=== PATIENT | male | born 1960 | race Caucasian/White ===

== ENCOUNTER 2022-08-04 00:28 | Day surgery (SDC) | payer OTHER, SELFPAY ==
[2022-07-26 12:14] VITALS: BMI 30.1
[2022-08-04 06:15] VITALS: BP 135/77; PULSE 66; RESP 20; TEMP 36.2; O2SAT 99
[2022-08-04] MEDS: LACTATED RINGERS 1,000 ML 150 ML IV CONT (06:27)
--- NOTE | 2022-08-04 06:51 | P.PNAN_ITS ---
Anes - Initial Pre Proc Eval Procedure: Operation Date: 08/04/22 07:30 Proposed Procedures p Screening Colonoscopy - Elmer Shaffer MD Date/Time: 08/04/22 06:51 Surgeon: Elmer Shaffer MD Pre Op Diagnosis: neoplasm screening Patient Data Age: 62 Gender: M Height: 1.78 m Weight: 100.2 kg Last Vital Signs Temp 36.2 C L 08/04/22 06:15 Pulse 66 08/04/22 06:15 Resp 20 08/04/22 06:15 BP 135/77 08/04/22 06:15 Pulse Ox 99 08/04/22 06:15 O2 Del Method Room Air 08/04/22 06:15 Allergies Allergy/AdvReac Type Severity Reaction Status Date / Time No Known Allergies Allergy Verified 08/04/22 06:13 Home Medications Medication Instructions Recorded Confirmed Type meloxicam 7.5 mg tablet 7.5 mg PO DAILY PRN Pain, Moderate 07/26/22 07/26/22 History Patient hx anesthesia problems: none Family hx anesthesia problems: none Results Review: All pre-operative results and documents have been reviewed as part of the pre- operative evaluation. [facility] Past Medical History Medical History (Updated 08/04/22 @ 06:51 by Fernandez Cronin MD) Obesity Surgical History Surgical History (Updated 08/04/22 @ 06:52 by Fernandez Cronin MD) H/O arthroscopic knee surgery History of carpal tunnel surgery Social History Social History Smoking status: Never smoker Alcohol intake: never Substance use type: does not use Living arrangements: with family Spiritual care concerns: No Anes - Eval Final PreProcedure Day of Procedure 08/04/22 06:51 Patient weight: obese Heart: regular rate and rhythm Lungs: clear to auscultation Airway: Mallampati scale class II Neurological: alert and oriented Last oral intake: >/= 8 hours ASA classification: II Emergent: no Anesthetic plan: proceed Anesthesia type and monitoring: general GIVS and standard monitoring Results Review: All pre-operative results and documents have been reviewed as part of the pre- operative evaluation. Informed Consent: The patient's anesthetic plan and its attendant risks and benefits were discussed with the patient/family/POA. Questions were solicited and answers provided to the satisfaction of the patient/family/POA.
--- NOTE | 2022-08-04 07:43 | P.HP_ITS ---
History of Present Illness History of Present Illness Consent: Risks, benefits, and alternatives have been discussed and questions answered. Patient agrees to proceed with procedure. Chief complaint: neoplasm screening Narrative: Juarez Giang is a 62 year old male Presents for screening colonoscopy. Patient's current weight appetite and bowel movements are normal. Patient denies abdominal pain. He has had no bleeding. Family history noncontributory. Review of Systems Review of Systems: Review of systems noncontributory. [facility] Past Medical History Medical History (Updated 08/04/22 @ 07:44 by Elmer Shaffer MD) Obesity Surgical History Surgical History (Updated 08/04/22 @ 06:52 by Fernandez Cronin MD) H/O arthroscopic knee surgery History of carpal tunnel surgery Social History Social History Smoking status: Never smoker Alcohol intake: never Substance use type: does not use Living arrangements: with family Spiritual care concerns: No Meds Home Medications and Allergies Home Medications Medication Instructions Recorded Confirmed Type meloxicam 7.5 mg tablet 7.5 mg PO DAILY PRN Pain, Moderate 07/26/22 07/26/22 History Allergies Allergy/AdvReac Type Severity Reaction Status Date / Time No Known Allergies Allergy Verified 08/04/22 06:13 Vital Signs Vital Signs - 24 hr 08/04/22 06:15 Temperature 97.1 F L Pulse Rate 66 Respiratory Rate 20 Blood Pressure 135/77 Pulse Oximetry 99 Oxygen Delivery Room Air Exam Narrative: Physical exam reveals patient to be alert. Vital signs stable. HEENT exam is unremarkable. Patient is anicteric. Lungs are clear to auscultation and percussion. Heart is without murmur or extra sounds. Abdomen bowel sounds present soft nontender with no organomegaly. Digital external rectal exam is normal. Assessment and Plan Assessment and plan (1) Encounter for screening colonoscopy: Code(s): Z12.11 - Encounter for screening for malignant neoplasm of colon Status: Acute Assessment and Plan: Patient presents for screening colonoscopy. He appears to be at average risk for colon polyps. Further recommendations will be given after endoscopy.
[2022-08-04 07:46] VITALS: BP 124/74; PULSE 64; RESP 22; O2SAT 98
[2022-08-04 07:54] VITALS: BP 126/72; PULSE 64; RESP 17; O2SAT 100
[2022-08-04 08:02] VITALS: BP 140/78; PULSE 60; RESP 20; O2SAT 100
== END 2022-08-04 08:20 | disposition home or self-care (01) ==
PROVIDERS: PCP Family Medicine; Visit Provider Internal Medicine Gastroenterology
PROC: 0DJD8ZZ Inspection of Lower Intestinal Tract, Via Natural or Artificial Opening Endoscopic (ICD-10-PCS; CPT 45378; principal; 2022-08-04 07:30)
DX: Z12.11 Encounter for screening for malignant neoplasm of colon (principal); K64.8 Other hemorrhoids; E66.9 Obesity, unspecified; Z68.31 Body mass index [BMI] 31.0-31.9, adult
CPT/HCPCS: 45378; J2704; J7120

== ENCOUNTER 2023-02-24 07:58 | Outpatient (CLI) | payer BC, SELFPAY ==
--- NOTE | 2023-02-24 08:15 | ECG_ITS ---
Measurements Intervals [place] Rate: 57 P: 34 SD: 228 QRS: -3 QRSD: 107 T: 28 QT: 397 QTc: 390 Interpretive Statements SINUS BRADYCARDIA WITH FIRST DEGREE AV BLOCK OTHERWISE UNREMARKABLE ECG NO PREVIOUS ECG AVAILABLE FOR COMPARISON Electronically Signed On 02-25-2023 8:16:59 CDT by Onesimo Meza M.D.
== END 2023-02-24 07:59 | disposition home or self-care (01) ==
PROVIDERS: PCP Nurse Practitioner Family; Visit Provider Nurse Practitioner Family
DX: Z01.818 Encounter for other preprocedural examination (principal); I44.0 Atrioventricular block, first degree
CPT/HCPCS: 93005

== ENCOUNTER 2023-09-05 08:06 | Emergency (ER) | payer BC, SELFPAY ==
--- NOTE | 2023-09-05 08:12 | ED.URI ---
HPI - URI/Sore Throat General Stated Complaint: TIRED/BODY ACHES/SORE THROAT Source: patient and RN notes reviewed Mode of arrival: ambulatory Limitations: no limitations History of Present Illness HPI Narrative: 63-year-old male presented to get tested for COVID. He endorses symptoms of headache, body aches, sinus pressure/congestion, cough, fever/chills. Onset last night. His tested positive for COVID 2 days ago. Not taking anything for symptoms. Additionally, he reports ankle swelling, warmth and redness. Onset yesterday. Denies ankle or calf pain. Denies numbness, tingling or weakness. States he had back surgery 05/2023, and has been more sedentary. However he walks daily, walked 3 miles yesterday. States it was more swollen yesterday. Has been elevating. Denies sob, wheezing, palpitations, cp, n/v/d. MD elicited complaint: cough Related Data Home Medications Medication Instructions Recorded Confirmed No Home Medications 09/05/23 09/05/23 Allergies Allergy/AdvReac Type Severity Reaction Status Date / Time codeine Allergy NAUSEA Verified 09/05/23 08:26 Review of Systems Review of Systems: CONSTITUTIONAL: Endorses malaise, chills, sweats, fever EYES: Denies visual changes, redness, or discharge ENT: Reports rhinorrhea, congestion, sore throat CARDIOVASCULAR: Denies chest pain, palpitations RESPIRATORY: Reports cough, post nasal drainage. Denies dyspnea GASTROINTESTINAL: Denies abdominal pain, nausea, vomiting, diarrhea MUSC: Reports left ankle swelling SKIN: Denies rash or wounds MUSCULOSKELETAL: Endorses myalgia NEUROLOGIC: Endorses headache PMFSH Past Medical History Medical History BMI 33.0-33.9,adult Chronic low back pain Chronic neck pain Dermatitis Encounter for prostate cancer screening PSA normal at 2.83 on 12/01/2021. Encounter for screening colonoscopy Normal colonoscopy 08/04/2022 with recheck in 10 years. Encounter for wellness examination in adult Neoplasm of scalp (~11/27/22) 0.3 cm pink papule left parietal scalp 11/27/2022 shave biopsy. Obesity Obesity (BMI 30.0-34.9) Osteoarthritis involving multiple joints on both sides of body Otitis media in diseases classified elsewhere, left ear Preop testing Surgical History Surgical History H/O arthroscopic knee surgery History of carpal tunnel surgery Social History Social History Smoking status: Never smoker Alcohol intake: never Substance use: never Substance use type: does not use Current Housing: Decline to Answer Concerned About Future Housing: Decline to Answer Difficulty Paying Gas/Electric Bills: Decline to Answer Difficulty Paying for Meds: Decline to Answer Currently Unemployed: Decline to Answer Education: Decline to Answer Difficulty w/ Childcare or Family Care: Decline to Answer Living arrangements: with family Spiritual care concerns: No Exam Narrative: GENERAL: well-appearing EYES: conjunctivae clear ENT: Mucous membranes moist. Nasal congestion. NECK: Supple. No lymphadenopathy CHEST: Clear to auscultation, breath sounds equal. No wheezing, rhonchi, rales, or stridor. No respiratory distress, speaks in full sentences. HEART: Regular rate and rhythm. No murmur heard. MUSC: Left ankle to mid foot swelling 2+. Right DP pulse +2, Left DP pulse +1. Full ROM to bilateral ankles. Nontender with palpation of ankle. Sensation and strength normal. Gait steady. SKIN: Warm, dry NEURO: Alert and oriented x3. PSYCH: Normal mood and affect Course Course Emergency Course: Patient is aware of diagnosis, understands and agrees to treatment plan. Anticipatory guidance given. Patient agrees to follow-up as directed and is aware of reasons to seek care at the emergency department. Portions of this record may have been created w
[2023-09-05 08:15] VITALS: BP 158/94; PULSE 80; RESP 16; TEMP 36.7; O2SAT 99
== END 2023-09-05 08:45 | disposition short-term general hospital (02) ==
PROVIDERS: Emergency Provider Nurse Practitioner Family; PCP Family Medicine
DX: B34.9 Viral infection, unspecified (principal); M25.472 Effusion, left ankle; Z20.822 Contact with and (suspected) exposure to COVID-19; E66.9 Obesity, unspecified; Z68.31 Body mass index [BMI] 31.0-31.9, adult; M15.9 Polyosteoarthritis, unspecified; Z85.828 Personal history of other malignant neoplasm of skin
CPT/HCPCS: 87426; 99213; C9803; G0463

== ENCOUNTER 2023-09-05 09:01 | Emergency (ER) | payer BC, SELFPAY ==
--- NOTE | ~2023-09-05 | XR_ITS ---
XR ankle LT min 3V DATE: 09/05/2023 09:54 INDICATION: Left ankle swelling. No injury. TECHNIQUE: 4 mm COMPARISON: None FINDINGS: No fracture or dislocation of the ankle or disruption of the ankle mortise. No periosteal r eaction or bone destruction is noted. Moderate plantar and posterior calcaneal enthesopathy. IMPRESSION: Plantar and posterior calcaneal enthesopathy Reviewed, dictated and finalized at location B. E ADJUSTMENT SUPERVISOR
--- NOTE | ~2023-09-05 | US_ITS ---
EXAMINATION: US venous doppler [facility] DATE: 09/05/2023 10:15 INDICATION: Left lower limb swelling and warmth TECHNIQUE: Grayscale ultrasound images without and with compression and Doppler ultrasound images of the left lower extremity veins were obtained. COMPARISON: None. FINDINGS: The visualized portions of left common femoral vein, profunda (deep) femoral vein, femoral vein, popl iteal vein, peroneal veins, posterior tibial veins, gastrocnemius vein and greater saphenous vein out flow are patent. IMPRESSION: 1. No deep venous thrombosis in the left lower limb. Reviewed, dictated and finalized at location A. TITY SURVEYOR
[2023-09-05 09:19] VITALS: BP 161/81; PULSE 73; RESP 20; TEMP 36.5; O2SAT 98
--- NOTE | 2023-09-05 09:36 | ED.GENADULT ---
HPI - General Adult General Chief complaint: Extremity Problem,Nontraumatic Stated complaint: left lower leg swelling Time Seen by Provider: 09/05/23 09:27 Source: patient Mode of arrival: ambulatory Limitations: no limitations History of Present Illness HPI narrative: This is a 63-year-old male who presents to the ED with chief complaint of left ankle swelling. He was referred to the ER from Urgent Care today to rule out DVT. Reports the ankle swelling began yesterday and is limited to just the ankle area. Denies any pain in the calf or thigh. Denies swelling in these areas as well. Denies history of blood clot. He is not currently on any blood thinners. He had spine surgery in May of 2023 and has been walking very regularly ever since. Reports he walked 3 miles yesterday. States the ankle does not have any pain. No problems with weight-bearing or ambulation. additional complaints viral URI symptoms, tested positive for COVID a couple days ago. He started feeling sick yesterday with cough congestion, sore throat. He had some chills but denies any documented fevers. Related Data Home Medications Medication Instructions Recorded Confirmed No Home Medications 09/05/23 09/05/23 Allergies Allergy/AdvReac Type Severity Reaction Status Date / Time codeine Allergy NAUSEA Verified 09/05/23 09:30 Review of Systems Review of Systems: All systems as dictated in [facility] Past Medical History Medical History BMI 33.0-33.9,adult Chronic low back pain Chronic neck pain Dermatitis Encounter for prostate cancer screening PSA normal at 2.83 on 12/01/2021. Encounter for screening colonoscopy Normal colonoscopy 08/04/2022 with recheck in 10 years. Encounter for wellness examination in adult Neoplasm of scalp (~11/27/22) 0.3 cm pink papule left parietal scalp 11/27/2022 shave biopsy. Obesity Obesity (BMI 30.0-34.9) Osteoarthritis involving multiple joints on both sides of body Otitis media in diseases classified elsewhere, left ear Preop testing Surgical History Surgical History H/O arthroscopic knee surgery History of carpal tunnel surgery Social History Social History Smoking status: Never smoker Alcohol intake: never Substance use: never Substance use type: does not use Current Housing: Decline to Answer Concerned About Future Housing: Decline to Answer Difficulty Paying Gas/Electric Bills: Decline to Answer Difficulty Paying for Meds: Decline to Answer Currently Unemployed: Decline to Answer Education: Decline to Answer Difficulty w/ Childcare or Family Care: Decline to Answer Living arrangements: with family Spiritual care concerns: No Exam Narrative: GENERAL: Well-appearing, well-nourished, and in no acute distress. HEAD: Normocephalic, atraumatic. EYES: PERRLA and EOMI. ENT: Nares clear, no rhinorrhea or epistaxis. Mucous membranes moist. Oropharynx without tonsillar hypertrophy exudate or other lesions. NECK: Supple. No adenopathy or masses. CHEST: No respiratory distress. Clear to auscultation. No wheezes rales or rhonchi HEART: Regular rate and rhythm. No murmur heard. Normal peripheral pulses. ABDOMEN: Soft, nontender, nondistended, normal active bowel sounds. MSK: LLE: mild swelling to the left ankle joint. No calf swelling. no tenderness throughout the LLE. Ambulatory without difficulty. Range of motion of the left ankle. RLE: Benign SKIN: Left ankle warmth present. No erythema or other discoloration. No lesions or bruising. No crepitus. NEURO: Alert and oriented x3. No focal deficits. PSYCH: Normal mood and affect. Course Vital Signs Vital signs: Vital Signs Temperature 97.7 F 09/05/23 09:19 Pulse Rate 73 09/05/23 09:19 Respiratory Rate 20 0
[2023-09-05 10:14] LABS: Basophils Percent Auto 0.5 % (0.2-1.2); Eosinophils Absolute Auto 0.1 K/mm3 (0-0.3); Eosinophils Percent Auto 0.7 % (0-4.4); Hematocrit 49.8 % (42.0-52.0); Hemoglobin 16.1 g/dL (14.0-18.0); Immature Granulocyte Absolute 0.05 K/mm3 (0.00-0.031); Immature Granulocyte Percent A 0.6 % (0-0.5); Lymphocytes Absolute Auto 0.82 K/mm3 (0.9-3.2); Lymphocytes Percent Auto 10.2 % (18.3-44.2); Mean Corpuscular HGB Conc 32.3 g/dl (32-36); Mean Corpuscular Hemoglobin 28.7 pg (26-34); Mean Corpuscular Volume 88.8 fl (80-100); Mean Platelet Volume 10.7 fl (7.4-10.4); Monocytes Absolute Auto 1.1 K/mm3 (0.1-0.6); Monocytes Percent Auto 14.2 % (2.6-8.5); Neutrophils Absolute Auto 5.9 K/mm3 (1.3-6.7); Neutrophils Percent Auto 73.8 % (45.5-73.1); Platelet Count Result 221 k/mm3 (150-375); Red Blood Count 5.61 M/mm3 (4.6-6.20); Red Cell Distribution Width 13.5 % (11.5-14.5)
[2023-09-05 10:26] LABS: Alanine Aminotransferase 52 U/L (6-50); Albumin Level 4.6 g/dL (3.5-5.1); Alkaline Phosphatase 91 U/L (38-126); Anion Gap 12 mmol/L (8-16); Aspartate Amino Transferase 31 U/L (17-59); Bilirubin,Total 0.8 mg/dL (0.2-1.3); Blood Urea Nitrogen 9 mg/dL (9-20); Calcium 9.1 mg/dL (8.4-10.2); Carbon Dioxide 26 mmol/L (22-30); Chloride 99 mmol/L (98-107); Estimated CRCL calculation 87 ml/min; Estimated Glomerular Filt Rate > 60; Glucose 96 mg/dL (65-110); Sodium 137 mmol/L (137-145)
[2023-09-05 10:28] LABS: INR 0.9; Prothrombin Time 12.9 Seconds (11.1-14.7)
[2023-09-05 10:29] LABS: Partial Thromboplastin Time 34.2 SECONDS (22.3-36.8)
== END 2023-09-05 11:16 | disposition home or self-care (01) ==
PROVIDERS: Emergency Provider Physician Assistant; PCP Family Medicine
DX: M25.472 Effusion, left ankle (principal)
CPT/HCPCS: 36415; 73610; 80053; 85025; 85610; 85730; 87426; 93971; 99284

== ENCOUNTER 2024-06-27 08:00 | Outpatient (CLI) | payer BC, SELFPAY ==
--- NOTE | ~2024-06-27 | MR_ITS ---
EXAMINATION: MR brain/brain stem wo con DATE: 06/27/2024 08:40 INDICATION: Headache, unspecified. TECHNIQUE: Magnetic resonance imaging (MRI) of the brain and brainstem was performed without intraven ous contrast. COMPARISON: None. FINDINGS: There are scattered areas of nonspecific increased T2-weighted signal intensity in the cere bral white matter, which is within normal limits for the patient's age. There is no intracranial hemo rrhage, acute infarction, or abnormal intracranial mass lesion. The ventricles are normal in size. Th ere is mild mucosal thickening in the paranasal sinuses. The orbits are normal. The mastoid air cells are normal. IMPRESSION: 1. Normal aging brain. Reviewed, dictated and finalized at location A. IMPRESSION: 1. Normal aging brain.
== END 2024-06-27 08:01 | disposition home or self-care (01) ==
LOC: MICIMG 08:01
PROVIDERS: PCP Family Medicine; Visit Provider Family Medicine
DX: R51.9 Headache, unspecified (principal)
CPT/HCPCS: 70551

== ENCOUNTER 2025-02-06 17:36 | Emergency (ER) | payer BC, SELFPAY ==
--- NOTE | 2025-02-06 17:52 | ED.SKABFB ---
HPI - Skin/Abscess/Foreign Bdy General Chief complaint: Skin/Abscess/Foreign Body Stated complaint: FISH HOOK IN L THUMB Time Seen by Provider: 02/06/25 17:40 Source: patient Mode of arrival: ambulatory Limitations: no limitations History of Present Illness HPI narrative: Patient is a 64-year-old male who presents with 3 barbed fishhook in left thumb, 2 barbs are stuck in thumb. Patient is in need of tetanus shot. Denies any numbness or tingling to the rest of thumb. Related Data Allergies Allergy/AdvReac Type Severity Reaction Status Date / Time codeine Allergy NAUSEA Verified 02/06/25 18:12 Review of Systems Review of Systems: All systems reviewed & are unremarkable except as noted in HPI and below Constitutional: Constitutional: Denies body ache(s), Denies chills, Denies fatigue, Denies fever(s), Denies headache(s), Denies malaise and Denies weakness Eyes: Eyes: Denies blurry vision, Denies irritation and Denies loss of vision ENT: Denies otalgia, Denies headache(s), Denies nasal discharge, Denies sinus pain and Denies sore throat Cardiovascular: Cardiovascular: Denies chest pain, Denies irregular heart rhythm and Denies dyspnea Respiratory: Respiratory: Denies dyspnea Gastrointestinal: Gastrointestinal: Denies abdominal pain, Denies melena, Denies hematochezia, Denies diarrhea, Denies nausea and Denies vomiting Musculoskeletal: Musculoskeletal: Denies back pain, Denies myalgias and Denies arthralgias Integumentary/Breasts: Skin/Breast: Denies pruritus, Denies rash and Reports other (Foreign body in thumb) Neurologic: Denies headache(s), Denies loss of vision and Denies weakness Psychiatric: Psychiatric: Reports no additional psychiatric complaints Endocrine: Endocrine: Denies fatigue [facility] Past Medical History Medical History 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 Dry eye syndrome of both eyes Acute non-recurrent maxillary sinusitis Cough Acute bronchitis Preop testing (~01/2024) Neoplasm of scalp (~11/27/22) 0.3 cm pink papule left parietal scalp 11/27/2022 shave biopsy. Obesity Encounter for screening colonoscopy Normal colonoscopy 08/04/2022 with recheck in 10 years. BMI 33.0-33.9,adult Obesity (BMI 30.0-34.9) Otitis media in diseases classified elsewhere, left ear Osteoarthritis involving multiple joints on both sides of body Chronic low back pain improved after spinal fusion and lumbar disc replacement surgery. Chronic neck pain Encounter for wellness examination in adult Encounter for prostate cancer screening PSA normal at 2.83 on 12/01/2021. PSA 4.0 on 02/04/2024. Dermatitis Surgical History Surgical History History of carpal tunnel surgery H/O arthroscopic knee surgery Social History Social History Smoking status: Never smoker Alcohol intake: never Substance use: never Substance use type: does not use Current Housing: Decline to Answer Concerned About Future Housing: Decline to Answer Difficulty Paying Gas/Electric Bills: Decline to Answer Difficulty Paying for Meds: Decline to Answer Currently Unemployed: Decline to Answer Education: Decline to Answer Difficulty w/ Childcare or Family Care: Decline to Answer Living arrangements: with family Spiritual care concerns: No Comments At time of signature, agree with nursing past medical, surgical, social and family history. There is no relevant family history pertinent to the presenting complaint. Exam Const: General: cooperative, healthy appearing, comfortable, no acute distress and well nourished Nutritional Appearance: well nourished Orientation/consciousness: patient oriented x3 Limitations: no limitations HENMT: Head: normal to inspection, normocephalic and atraumatic Ears: hearing grossly normal bilaterally and external ears normal Face/Nose/Sinus: Normal external nose present, normal facial exam and face symmetric Face and sinus: normal facial exam and face symmetric Mouth: Yes lip normal Eyes: General: appearance normal, both eyes and all related structures Alignment and Position: alignment normal and position normal Periorbital: periorbital findings normal Eyelids: eyelids normal Pupils: Equal, round and reactive pupils present EOM: EOMs intact bilaterally Neck: Neck: normal visual inspection, full ROM and supple Chest: Chest palpation & inspection: normal inspection of the chest Resp: Effort & Inspection: normal respiratory effort and able to speak in complete sentences Auscultation: clear to auscultation bilaterally Cardio: Rate: regular rate Rhythm: regular rhythm Heart sounds: S1 normal heart sound present and S2 normal heart sound present GI: Inspection: normal to inspection Skin: General skin exam: normal color and no rashes or lesions noted Neuro: General: patient oriented x3 and moves all extremities Cranial nerves: Yes Equal, round and reactive pupils present Speech: normal speech Gait exam (Neuro): Normal gait present Extrem: General: normal to inspection, full ROM and no edema Hand/finger images:  1. Superficial [place] insertion site 2. Deep [place] insertion site 3. 3 pronged fishhook Psych: Appearance: grossly normal and well kempt Mental Status: mental status grossly normal Speech and movement: Normal speech and movement present Affect: normal affect Attitude: cooperative Thought process: Normal thought process present Course Course Emergency Course: Patient is aware of diagnosis, understands and agrees to treatment plan. Anticipatory guidance given. Patient agrees to follow-up as directed and is aware of reasons to seek care at the emergency department. Portions of this record may have been created with voice recognition software Level of Care: Express Care Visit Vital Signs Vital signs: Reviewed Procedures Foreign Body Removal Foreign Body #1: Foreign Body Removal Date: 02/06/25 Foreign Body Removal Time: 19:50 Time Out Performed: yes Site: left and hand Description of foreign body: fish hook Sedation/Analgesia: none Technique: manual removal Confirmed by:: direct visualization Complications: none Post-procedure exam: awake, alert, normal BP, normal HR and normal O2 sat Neurovascular: normal distal pulse, normal capillary fill, distal light touch sensation intact, distal motor function normal, no signs of compartment syndrome and no change from pre-procedure Foreign Body Removal Narrative: Procedure explained to patient. Verbal consent obtained. Third prong removed with pliers to have better access to 2 prongs in finger. Superficial prong was removed by using ring cutter and then it was able to slide out. Second problem was removed using string method where the rest of hook was held straight and [place] was disengaged by pressing down into finger and then pulled straight out with string. Patient tolerated well wound was then irrigated and cleansed. Covered with antibiotic ointment and Band-Aid MDM - Skin/Abscess/Foreign Bdy MDM Narrative Medical decision making narrative: Tetanus shot updated. [place] removed. Patient tolerated well Pt well hydrated appearing, in no respiratory distress, hemodynamically stable. Recommend supportive care. The patient is stable at time of discharge the clinical impression was discussed and the patient was given the opportunity to ask questions, which were addressed as completely as possible given the information available at present. Anticipatory guidance and return to care precautions were discussed and the importance of primary care follow-up was stressed and encouraged. The patient voiced understanding of the plan, indications to return, and the need for follow-up. Exam findings show no acute concerns or changes Patient is appropriate for outpatient treatment and follow-up. Differential Diagnosis Differential diagnosis: Likely other (Foreign body in finger) Medical Records Attestation: I reviewed the patient's medical records. Discharge Plan Discharge Clinical Impression: [place] injury to finger Qualifiers: Encounter type: initial encounter Laterality: left Qualified Code(s): S69.92XA - Unspecified injury of left wrist, hand and finger(s), initial encounter Patient Disposition: Home Condition: Stable Instructions: Cellulitis (ED) Additional Instructions: Please follow up with your Primary Care Doctor within 48-72 hours - call for an appointment. Rest and elevate affected area; apply moist heat 3-4 times daily for 10-15 minutes. Take Motrin 600mg every 8 hours with food for pain. Please take Antibiotics as directed. If you experience any worsening redness, swelling, streaking (red lines), fever or chills please go to the ER Patient Language: Slovenian Prescriptions: New cephalexin 500 mg capsule 500 mg PO QID 10 Days Qty: 40 0RF levofloxacin 750 mg tablet 750 mg PO DAILY 10 Days Qty: 10 0RF Follow-up/Referrals: Kev Lipscomb MD [Primary Care Provider] - 3 Days Time of Disposition: 18:57
[2025-02-06 17:53] VITALS: BP 148/71; PULSE 70; RESP 16; TEMP 36.6; O2SAT 98
[2025-02-06] MEDS: TETANUS,DIPHTHERIA,AC PERTUSSIS ADULT (0.5 ML) BOOSTRIX IM (18:21)
== END 2025-02-06 19:00 | disposition home or self-care (01) ==
PROVIDERS: Emergency Provider Nurse Practitioner Family; PCP Family Medicine
DX: S61.042A Puncture wound with foreign body of left thumb without damage to nail, initial encounter (principal); W26.8XXA Contact with other sharp object(s), not elsewhere classified, initial encounter; Z23 Encounter for immunization; E66.9 Obesity, unspecified; Z68.31 Body mass index [BMI] 31.0-31.9, adult; M15.9 Polyosteoarthritis, unspecified; Z85.828 Personal history of other malignant neoplasm of skin
CPT/HCPCS: 90471; 90715; 99213; G0463

== ENCOUNTER 2025-02-17 13:17 | Outpatient (CLI) | payer BC, SELFPAY ==
--- NOTE | ~2025-02-17 | MR_ITS ---
MRI of the right knee Clinical history: Pain Technique: Coronal proton density and proton density-weighted images, sagittal proton-density and T2 fat-sat images, and axial proton-density fat-saturated images were acquired. Findings: Anterior and posterior cruciate ligament are intact. Medial collateral ligament and the lat eral collateral ligament complex are intact. Popliteus tendon is intact. There is extensive complex tearing of the posterior horn and body of medial meniscus, which are dimin utive. No lateral meniscal tear evident. 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 There is diffuse high-grade chondromalacia the femoral trochlea. There i s extensive high-grade chondral malacia over the posterior aspect of the medial femoral condyle, with moderate chondromalacia of the medial tibial plateau. Articular cartilage in the lateral compartment is well preserved. There is osteophyte formation at the intercondylar notch, medial joint line, and in the patellofemoral compartment. Extensor mechanism is intact. No significant joint effusion or Barboza's cyst. Impression: Extensive complex tearing of the posterior horn and body of the medial meniscus. Severe degenerative change of the patellofemoral compartment. Moderate degenerative change of the med ial compartment. Mild degenerative change of the lateral compartment. Reviewed, dictated and finalized at location . Impression: Extensive complex tearing of the posterior horn and body of the medial meniscus . Severe degenerative change of the patellofemoral compartment. Moderate degenera tive change of the medial compartment. Mild degenerative change of the lateral compartment.
== END 2025-02-17 13:18 | disposition home or self-care (01) ==
LOC: MICIMG 13:17
PROVIDERS: PCP Family Medicine; Visit Provider Orthopaedic Surgery Sports Medicine
DX: M17.11 Unilateral primary osteoarthritis, right knee (principal); S83.241A Other tear of medial meniscus, current injury, right knee, initial encounter; X58.XXXA Exposure to other specified factors, initial encounter
CPT/HCPCS: 73721

== ENCOUNTER 2025-06-14 11:04 | Emergency (ER) | payer BC, SELFPAY ==
[2025-06-14 11:16] VITALS: BP 139/71; PULSE 58; RESP 16; TEMP 36.4; O2SAT 98
--- NOTE | 2025-06-14 11:17 | ED.URI ---
HPI - URI/Sore Throat General Chief Complaint: Upper Respiratory Infection Stated Complaint: Sinus Infection Symptoms Time Seen by Provider: 06/14/25 11:31 Source: patient and RN notes reviewed Mode of arrival: ambulatory Limitations: no limitations History of Present Illness HPI Narrative: 64-year-old male presents with concern for 3 day history of sinus pressure, drainage, cough and sore throat. Reports he took meloxicam today. Reports he is concerned of sitting his elderly parents sick. He denies headache, nausea, vomiting, diarrhea. MD elicited complaint: cough, sore throat and nasal congestion Related Data Allergies Allergy/AdvReac Type Severity Reaction Status Date / Time codeine Allergy NAUSEA Verified 06/14/25 11:18 Review of Systems Review of Systems: CONSTITUTIONAL: Denies malaise, chills, sweats, or fever. EYES: Denies visual changes, redness, or discharge. ENT: Reports rhinorrhea, congestion, and sore throat. CARDIOVASCULAR: Denies chest pain, palpitations, or edema. RESPIRATORY: Reports cough. Denies dyspnea. GASTROINTESTINAL: Denies abdominal pain, nausea, vomiting, diarrhea SKIN: Denies rash or itching. MUSCULOSKELETAL: Denies myalgia. NEUROLOGIC: Denies headache. 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 Dry eye syndrome of both eyes Acute non-recurrent maxillary sinusitis Cough Acute bronchitis Preop testing (~01/2024) Neoplasm of scalp (~11/27/22) 0.3 cm pink papule left parietal scalp 11/27/2022 shave biopsy. Obesity Encounter for screening colonoscopy Normal colonoscopy 08/04/2022 with recheck in 10 years. BMI 33.0-33.9,adult Obesity (BMI 30.0-34.9) Otitis media in diseases classified elsewhere, left ear Osteoarthritis involving multiple joints on both sides of body Chronic low back pain improved after spinal fusion and lumbar disc replacement surgery. Chronic neck pain Encounter for wellness examination in adult Encounter for prostate cancer screening PSA normal at 2.83 on 12/01/2021. PSA 4.0 on 02/04/2024. Dermatitis Surgical History Surgical History History of carpal tunnel surgery H/O arthroscopic knee surgery Social History Social History Smoking status: Never smoker Alcohol intake: never Substance use: never Substance use type: does not use Current Housing: Decline to Answer Concerned About Future Housing: Decline to Answer Difficulty Paying Gas/Electric Bills: Decline to Answer Difficulty Paying for Meds: Decline to Answer Currently Unemployed: Decline to Answer Education: Decline to Answer Difficulty w/ Childcare or Family Care: Decline to Answer Living arrangements: with family Spiritual care concerns: No Comments At time of signature, agree with nursing past medical, surgical, social and family history. There is no relevant family history pertinent to the presenting complaint Exam Narrative: GENERAL: Well-appearing, well-nourished, and in no acute distress. HEAD: Normocephalic EYES: PERRLA, conjunctivae clear ENT: Nares clear. Mucous membranes moist. TM pearly bradley with dull light reflex bilaterally; no tragal tenderness. Oropharynx not erythematous without lesions. Tonsils not enlarged and without exudate, no drooling, no hoarseness, no trismus, uvula midline. NECK: Supple. No lymphadenopathy CHEST: Clear to auscultation, breath sounds equal. No wheezing, rhonchi, rales, or stridor. No respiratory distress, speaks in full sentences. HEART: Regular rate and rhythm. No murmur heard. SKIN: Warm, dry, no rash. NEURO: Alert and oriented x3. PSYCH: Normal mood and affect Course Course Emergency Course: Patient is aware of diagnosis, understands and agrees to treatment plan. Anticipatory guidance given. Patient agrees to follow-up as directed and is aware of reasons to seek care at the emergency department. Portions of this record may have been created with voice recognition software Level of Care: Express Care Visit Vital Signs Vital signs: Vital Signs Temperature 97.6 F 06/14/25 11:16 Pulse Rate 58 L 06/14/25 11:16 Respiratory Rate 16 06/14/25 11:16 Blood Pressure 139/71 06/14/25 11:16 Pulse Oximetry 98 06/14/25 11:16 Temperature 97.6 F 06/14/25 11:16 Pulse Rate 58 L 06/14/25 11:16 Respiratory Rate 16 06/14/25 11:16 Blood Pressure 139/71 06/14/25 11:16 Pulse Oximetry 98 06/14/25 11:16 Oxygen Delivery Room Air 06/14/25 11:18 Reviewed. MDM - URI/Sore Throat MDM Narrative Medical decision making narrative: Differential diagnosis considered: Vasquez virus, strep pharyngitis, allergic rhinitis, upper respiratory tract infection, sinusitis, rhinosinusitis, nasopharyngitis. viral pharyngitis, otitis media, otitis externa, pneumonia, bronchitis, viral cough syndrome, viral syndrome, and influenza. Exam findings show no acute concerns or changes; patient is non-toxic appearing and is in no distress. Patient is appropriate for outpatient treatment and follow-up. Lab Data Attestation: I reviewed the patient's lab results. Critical Care Time Critical Care Time Critical Care Time: No Discharge Plan Discharge Clinical Impression: Upper respiratory infection Patient Disposition: Home Condition: Stable Instructions: Upper Respiratory Infection (ED) Additional Instructions: Your rapid COVID and flu tests are negative Your rapid strep swab was negative today at [facility]. A throat culture will be sent to the laboratory for further testing. If the test is positive, you will receive a phone call within 48 hours and an appropriate antibiotic will be initiated at that time. Your symptoms are likely due to a viral illness, which is not treated with antibiotics. Viral symptoms can be present for up to a few weeks. -Alternate Tylenol and Motrin per package directions for fever or pain. -Antihistamine medication such as Benadryl at night and Zyrtec during the day can help improve symptoms. -Eat and drink things that are easy to swallow, like tea or soup, or popsicles to suck on. -Oral rinses such as: Salt water gargles and/or may use topical anesthetic (eg. Chloraseptic spray) or lozenges to relieve dryness or throat pain). -Frequent hand washing or hand ui developer with angular js is one of the best ways to prevent spread of infection. -Follow up with primary care provider in 2-3 days if condition is not improving; or seek ER visit if you have trouble breathing, cannot drink enough fluids, have muffled voice, difficulty opening your mouth, or severe swelling. Patient Language: Micronesian Prescriptions: New pseudoephedrine HCl [12 Hour Decongestant] 120 mg tablet extended release 120 mg PO Q12H PRN (Reason: nasal congestion) Qty: 20 0RF dextromethorphan-guaifenesin [Mucinex DM] 60-1,200 mg tablet extended release 12 hr 1 tablet PO Q12H Qty: 12 0RF Follow-up/Referrals: Kev Lipscomb MD [Primary Care Provider, Family Practice] Time of Disposition: 12:00
[2025-06-14 12:08] LABS: EDCOVIDSCREEN Negative (Negative); EDINFLUASCREEN Negative (Negative); EDINFLUBSCREEN Negative (Negative); EDSTREPNEGPOS1 Negative (Negative)
== END 2025-06-14 12:04 | disposition home or self-care (01) ==
PROVIDERS: Emergency Provider Nurse Practitioner; PCP Family Medicine
DX: J06.9 Acute upper respiratory infection, unspecified (principal); Z20.822 Contact with and (suspected) exposure to COVID-19; M15.9 Polyosteoarthritis, unspecified; E66.9 Obesity, unspecified; Z68.33 Body mass index [BMI] 33.0-33.9, adult; Z85.9 Personal history of malignant neoplasm, unspecified
CPT/HCPCS: 87081; 87426; 87804; 87880; 99213; G0463